=== PATIENT | female | born 1955 | race Caucasian/White ===

== ENCOUNTER 2021-08-14 11:31 | Emergency (ER) | payer MEDICARE, MEDICAID ==
[~2021-08-14] VITALS: Ht 157.5 cm; Wt 100.3 kg
[~2021-08-14 11:31] MED LIST: ASPI-1264 PO; ATOR20TA PO; HYDR-4353 PO; HYDR12.5 PO; IBUP-1984 PO; LEVA15HF4 INH; METO50TA7 PO; OLAN2.5T3 PO; ROPI1TAB2 PO; SYN0.075T PO; TEMA15CA5 PO; TIOT18CA7 IH
[2021-08-14 12:30] LABS: CLARITY,URINE CLEAR (Clear); COLOR,URINE YELLOW (Yellow); GLUCOSE, URINE NEGATIVE (Neg); KETONES,URINE NEGATIVE (Neg); LEUKOCYTE ESTERASE ,URINE NEGATIVE (Neg); NITRITES, URINE NEGATIVE (Neg); OCCULT BLOOD,URINE NEGATIVE (Neg); PROTEIN,URINE NEGATIVE (Neg); UROBILINOGEN,URINE 0.2 E.U/dL (0.2-1.0)
[2021-08-14 12:31] LABS: UA COLLECTION TYPE CLN CATCH MIDSTREAM
[2021-08-14 12:57] VITALS: BP 122/59
[2021-08-14 13:25] LABS: BASOPHILS % (AUTO) 0.5 % (0-1); EOSINOPHILS # (AUTO) 0.2 X10'3 (0-0.9); EOSINOPHILS % (AUTO) 2.3 % (0-6); HEMATOCRIT 44.1 % (35.0-45.0); HEMOGLOBIN 14.3 g/dl (12.0-16.0); LYMPHOCYTES # (AUTO) 2.9 X10'3 (1.1-4.8); LYMPHOCYTES % (AUTO) 36.6 % (21-51); MEAN CORPUSCULAR HEMOGLOBIN 30.8 PG (27.0-31.0); MEAN CORPUSCULAR HGB CONC 32.5 g/dL (33.0-36.5); MEAN CORPUSCULAR VOLUME 94.6 FL (78-98); MONOCYTES # (AUTO) 0.5 X10'3 (0-0.9); MONOCYTES % (AUTO) 6.1 % (2-12); NEUTROPHILS # (AUTO) 4.3 X10'3 (1.8-7.7); NEUTROPHILS % (AUTO) 54.5 % (42-75); PLATELET COUNT 270 X10'3 (140-440); RED BLOOD COUNT 4.66 X10'6 (4.20-5.60); RED CELL DISTRIBUTION WIDTH 13.7 % (11.5-14.5); WHITE BLOOD COUNT 7.9 X10'3 (4.5-11.0)
[2021-08-14 13:39] LABS: ALANINE AMINOTRANSFERASE 26 U/L (12-78); ALBUMIN 3.6 G/DL (3.4-5.0); ALBUMIN/GLOBULIN RATIO 1.2 (1.1-1.5); ALKALINE PHOSPHATASE 100 IU/L (46-116); ANION GAP 6 (8-16); ASPARTATE AMINO TRANSFERASE 25 U/L (10-37); BILIRUBIN,TOTAL 0.2 MG/DL (0.1-1.0); BLOOD UREA NITROGEN 14 MG/DL (7-18); BUN/CREATININE RATIO 9.6 (6.6-38.0); CALCIUM 8.9 MG/DL (8.5-10.1); CHLORIDE 106 MMOL/L (99-107); CREATININE 1.46 MG/DL (0.40-0.90); GLUCOSE 95 MG/DL (70-104); POTASSIUM 4.8 MMOL/L (3.5-5.1); SODIUM 142 MMOL/L (135-145); TOTAL CARBON DIOXIDE 29.8 MMOL/L (24-32); TOTAL PROTEIN 6.6 G/DL (6.4-8.2); eGFR 36 ML/MIN
[2021-08-14 13:42] LABS: ETHANOL < 0.010 GM/DL (0.0-0.010)
== END 2021-08-14 14:39 | disposition home or self-care (01) ==
LOC: ER 11:31
DX: R47.1 Dysarthria and anarthria (principal); R42 Dizziness and giddiness; E78.00 Pure hypercholesterolemia, unspecified; I10 Essential (primary) hypertension; J44.9 Chronic obstructive pulmonary disease, unspecified; F15.90 Other stimulant use, unspecified, uncomplicated; Z85.9 Personal history of malignant neoplasm, unspecified; Z56.0 Unemployment, unspecified; Z88.0 Allergy status to penicillin; Z88.8 Allergy status to other drugs, medicaments and biological substances; Z79.82 Long term (current) use of aspirin; Z79.899 Other long term (current) drug therapy; Z86.73 Personal history of transient ischemic attack (TIA), and cerebral infarction without residual deficits
CPT/HCPCS: 36415; 70450; 71045; 80053; 80320; 81003; 82948; 84484; 85025; 93005; 99285

== ENCOUNTER 2022-03-04 11:41 | Emergency (ER) | payer BC, MEDICAID ==
[~2022-03-04] VITALS: Ht 157.5 cm; Wt 90.9 kg
[~2022-03-04 11:41] MED LIST changes: +ALBU17AE26 PO; +AMIT50TA15 PO; -ASPI-1264 PO; +GABA300C PO; -HYDR-4353 PO; -HYDR12.5 PO; -IBUP-1984 PO; -LEVA15HF4 INH; +LISI20TA28 PO; -OLAN2.5T3 PO; -ROPI1TAB2 PO; -TEMA15CA5 PO; -TIOT18CA7 IH; +TRAZ150T78 PO; +UMEC1DIS INH
[2022-03-04 13:56] LABS: BASOPHILS # (AUTO) 0.1 X10'3 (0-0.2); BASOPHILS % (AUTO) 0.5 % (0-1); EOSINOPHILS % (AUTO) 0 % (0-6); HEMATOCRIT 48.1 % (35.0-45.0); HEMOGLOBIN 15.8 g/dl (12.0-16.0); LYMPHOCYTES # (AUTO) 2.1 X10'3 (1.1-4.8); LYMPHOCYTES % (AUTO) 18.6 % (21-51); MEAN CORPUSCULAR HEMOGLOBIN 31.2 PG (27.0-31.0); MEAN CORPUSCULAR HGB CONC 32.9 g/dL (33.0-36.5); MEAN CORPUSCULAR VOLUME 94.8 FL (78-98); MEAN PLATELET VOLUME 8.3 FL (7.4-10.4); MONOCYTES # (AUTO) 0.6 X10'3 (0-0.9); MONOCYTES % (AUTO) 5.7 % (2-12); NEUTROPHILS # (AUTO) 8.6 X10'3 (1.8-7.7); NEUTROPHILS % (AUTO) 75.2 % (42-75); PLATELET COUNT 324 X10'3 (140-440); RED BLOOD COUNT 5.07 X10'6 (4.20-5.60); RED CELL DISTRIBUTION WIDTH 13.5 % (11.5-14.5); WHITE BLOOD COUNT 11.5 X10'3 (4.5-11.0)
[2022-03-04 14:16] LABS: ALANINE AMINOTRANSFERASE 31 U/L (12-78); ALBUMIN 4.5 G/DL (3.4-5.0); ALBUMIN/GLOBULIN RATIO 1.5 (1.1-1.5); ALKALINE PHOSPHATASE 104 IU/L (46-116); ANION GAP 11 (8-16); ASPARTATE AMINO TRANSFERASE 38 U/L (10-37); BLOOD UREA NITROGEN 6 MG/DL (7-18); BUN/CREATININE RATIO 5.4 (6.6-38.0); CALCIUM 9.4 MG/DL (8.5-10.1); CHLORIDE 104 MMOL/L (99-107); CREATININE 1.11 MG/DL (0.40-0.90); GLUCOSE 96 MG/DL (70-104); POTASSIUM 3.1 MMOL/L (3.5-5.1); SODIUM 142 MMOL/L (135-145); TOTAL CARBON DIOXIDE 27.3 MMOL/L (24-32); TOTAL PROTEIN 7.6 G/DL (6.4-8.2); eGFR 49 ML/MIN
--- NOTE | 2022-03-04 18:37 | NUR ---
HOME MEDICATIONS: METOPROLOL LISINOPRIL ASA LEVOTHYROXIN ATORVASTATIN GABAPENTIN VENTOLIN
[2022-03-05] MEDS ORDERED: ipratropium 0.5 MG/2.5ML nebule IH ONE (00:05)
[2022-03-05] MEDS ORDERED: ipratropium/albuterol 3ml nebule NEB STA (00:12)
[2022-03-05] MEDS ORDERED: LORazepam 1 MG tablet PO ONE (00:40)
[2022-03-05 01:33] LABS: D-DIMER 0.48 MG/L FEU (0-0.50)
[2022-03-05 01:50] VITALS: BP 146/108
== END 2022-03-05 01:51 | disposition home or self-care (01) ==
LOC: ER 11:41
DX: R06.00 Dyspnea, unspecified (principal); R06.02 Shortness of breath; R11.0 Nausea; Z20.822 Contact with and (suspected) exposure to COVID-19; E78.00 Pure hypercholesterolemia, unspecified; I10 Essential (primary) hypertension; J44.9 Chronic obstructive pulmonary disease, unspecified; F41.9 Anxiety disorder, unspecified; Z86.73 Personal history of transient ischemic attack (TIA), and cerebral infarction without residual deficits; Z98.890 Other specified postprocedural states; Z56.0 Unemployment, unspecified; Z79.899 Other long term (current) drug therapy; Z88.0 Allergy status to penicillin; Z88.5 Allergy status to narcotic agent; Z88.8 Allergy status to other drugs, medicaments and biological substances
CPT/HCPCS: 36415; 71045; 80053; 83880; 84484; 85025; 85379; 87502; 87503; 87635; 93005; 94640; 99285; C9803; 94760

== ENCOUNTER 2024-05-28 16:01 | Emergency (ER) | payer MEDICARE, MEDICAID ==
[~2024-05-28] VITALS: Ht 157.5 cm; Wt 100.0 kg
[~2024-05-28 16:01] MED LIST changes: +ALEN70TA19 PO; +CRAN500T4 PO; +DONE-55 PO; +HYDR-3686 PO; +HYDR-3972 PO; +LACT1CAP76 PO; +LEVO750T68 PO; -LISI20TA28 PO; +MELA5TAB12 PO; +OLAN5TAB5 PO; -UMEC1DIS INH
[2024-05-28 16:20] VITALS: BP 142/94; PULSE 95; RESP 16; TEMP 97.5; O2SAT 96
== END 2024-05-28 19:21 | disposition left against medical advice (07) ==
LOC: ER 16:02
DX: N39.0 Urinary tract infection, site not specified (principal); Z53.21 Procedure and treatment not carried out due to patient leaving prior to being seen by health care provider
CPT/HCPCS: 99281